=== PATIENT | female | born 1995 | race Caucasian/White ===

== ENCOUNTER 2018-11-26 12:15 | Emergency (ER) | payer SELFPAY ==
[~2018-11-26] VITALS: Ht 157.5 cm; Wt 99.8 kg
[2018-11-26 12:29] VITALS: BP 154/73
--- NOTE | 2018-11-26 13:05 | NUR ---
PT AMBULATED TO BATHROOM WITH STEADY GAIT
[2018-11-26] MEDS ORDERED: KETOROLAC 60 MG/2 ML VIAL IM ONE (13:10)
--- NOTE | 2018-11-26 13:10 | NUR ---
23F BIB SELF W/ C/O LT ARM PIT PAIN SINCE YESTERDAY. 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 DENIES FEVER, CHILLS. ABSCESS/SWELLING IN LEFT ARMPIT NOTED. HX- NONE
--- NOTE | 2018-11-26 14:32 | NUR ---
DR. DILLARD AT BEDSIDE
[2018-11-26] MEDS ORDERED: LIDOCAINE 1% ***ER ONLY *** 10 MG/ML VIAL INJ ONE (14:45)
[2018-11-26] MEDS ORDERED: LIDOCAINE 2% 1000 MG/50 ML VIAL INJ ONE (14:58)
[2018-11-26] MEDS ORDERED: LIDOCAINE MPF 1% - 5 mL VIAL 5 ML ONE (15:02)
--- NOTE | 2018-11-26 15:04 | NUR ---
EMT AT BEDSIDE TO APPLY DRESSING.
--- NOTE | 2018-11-26 15:11 | NUR ---
Patient discharged with v/s stable. Written and verbal after care instructions given and explained. Patient alert, oriented and verbalized understanding of instructions. Ambulatory with steady gait. All questions addressed prior to discharge. ID band removed. Patient advised to follow up with PMD. Rx of KEFLEX, MOTRIN, AND NORCO given. Patient educated on indication of medication including possible reaction and side effects. Opportunity to ask questions provided and answered.
[2018-11-26 15:12] VITALS: BP 107/49
== END 2018-11-26 15:11 | disposition home or self-care (01) ==
LOC: MED 12:15
DX: L02.412 Cutaneous abscess of left axilla (principal)
CPT/HCPCS: 10060; 81025; 96372; 99283; J1885; J2001